=== PATIENT | male | born 1965 | race Caucasian/White ===

== ENCOUNTER → 2019-03-03 | Emergency (ER) | payer OTHER ==
[~2019-03-03] VITALS: Ht 180.3 cm; Wt 90.7 kg
[~2019-03-03] MED LIST: ATORVASTATIN CA10 MG PO; METFORMIN HCL1000 M2 PO; ZESTRIL5 MG PO
== END | disposition designated cancer center or children's hospital (05) ==
LOC: ER 11:08
DX: I63.89 Other cerebral infarction (principal)